=== PATIENT | male | born 1980 | race Caucasian/White ===

== ENCOUNTER 2024-05-01 15:42 | Emergency (ER) | payer OTHER, MEDICAID, SELFPAY ==
--- NOTE | ~2024-05-01 | XR_ITS ---
HISTORY: abscess/possible FB to heel COMPARISON: None TECHNIQUE: 2 views of the calcaneus were performed. FINDINGS: No acute or subacute fracture.. No radiopaque foreign body or significant calcification. Normal mineralization. IMPRESSION: As above. Reviewed, dictated and finalized at location A. 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
--- OUTSIDE RECORDS SUMMARY | 2024-05-01 15:46 | XMS_ITS | CONTINUITY OF CARE DOCUMENT ---
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
--- NOTE | 2024-05-01 17:03 | PC.NURSE ---
ice pack given for comfort
[2024-05-01 17:24] VITALS: BP 159/103; PULSE 109; RESP 18; TEMP 36.4; O2SAT 98
--- NOTE | 2024-05-01 18:07 | ED.SKABFB ---
HPI - Skin/Abscess/Foreign Bdy General Chief complaint: Skin/Abscess/Foreign Body <EZEQUIEL Rosario Last Filed: 05/01/24 18:16> Stated complaint: Left foot abcess <EZEQUIEL Rosario Last Filed: 05/01/24 18:16> Time Seen by Provider: 05/01/24 18:07 <EZEQUIEL Rosario Last Filed: 05/01/24 18:16> Focused HPI: Patient is a 43 y/o male who presents to the ED with c/o abscess to L heel. Patient reports he has had pain surrounding a callous throughout his L heel for the past 2 weeks. Denies ever stepping on anything that he is aware of. No new shoes. States he soaked his heel in hot water 2 weeks ago and was able to pull some of the callous off and pus drained out. States over the past couple days, it feels as though it has filled up with pus again. Denies new injury. Has not taken anything for pain. Denies numbness. GENERAL: Well-appearing, well-nourished, and in no acute distress. HEAD: Normocephalic, atraumatic. CHEST: Clear to auscultation. ?No respiratory distress. HEART: Regular rate and rhythm.? MSK: Pedal pulses intact. Callous formation to L heel with puncture wound/possible FB with immediate surrounding fluctuant area. Focal TTP. No active drainage. Sensation intact. NEURO: ?Alert and oriented x3. Patient screened in triage and initial orders placed.? ?Additional care and disposition to be based upon?diagnostic testing and treatment. <Chasity Weinstein PA-C - Last Filed: 05/01/24 18:16> Source: patient <EZEQUIEL Rosario Last Filed: 05/01/24 18:16> Mode of arrival: ambulatory <EZEQUIEL Rosario Last Filed: 05/01/24 18:16> EMS <Gladys Preciado MD - Last Filed: 05/02/24 17:46> Limitations: no limitations <EZEQUIEL Rosario Last Filed: 05/01/24 18:16> History of Present Illness HPI narrative: Agree with the above the following additions/corrections: Patient states he has not taken anything for pain at home. Denies any fevers or chills. States he tries to take care of his feet by washing them and wearing clean socks. No history diabetes. <Gladys Preciado MD - Last Filed: 05/02/24 17:46> Related Data Allergies/Adverse reactions: Allergies Allergy/AdvReac Type Severity Reaction Status Date / Time No Known Allergies Allergy Verified 05/01/24 15:43 <Chasity Weinstein PA-C - Last Filed: 05/01/24 18:16> PMFSH Social History Social History: Social History Smoking status: Current every day smoker Alcohol intake: current <Chasity Weinstein PA-C - Last Filed: 05/01/24 18:16> Exam Narrative: GENERAL: well-nourished, in mild acute distress. HEAD: Normocephalic, atraumatic. EYES: Non injected, non icteric ENT: Nares clear, no rhinorrhea or epistaxis. NECK: Supple. CHEST: Speaking in full sentences. No respiratory distress. HEART: Regular rate and rhythm. Strong palpable DP pulse. ABDOMEN: Soft, nondistended. EXTREMITIES: Normal range of motion. No lower extremity edema. SKIN: Warm, dry. Area at left heel that appears to be the area under an unroofed callous - mild tenderness to palpation but otherwise skin intact, not draining. Distally to this appears a lesion with central small whitish area that is very tender to palpation. Size less than 1cm x 1 cm. NEURO: No focal deficits. Alert and oriented x3. Patient speaks very quickly with Serbian as 2nd language. This makes it difficult to understand him at times necessitating that he repeat what he had been saying. PSYCH: Normal mood and affect. <Gladys Preciado MD - Last Filed: 05/02/24 17:46> Course Vital Signs Vital signs: Vital Signs Temperature 97.6 F 05/01/24 17:24 Pulse Rate 109 H 05/01/24 17:24 Respiratory Rate 18 05/01/24 17:24 Blood Pressure 159/103 H 05/01/24 17:24 Pulse Oximetry 98 05/01/24 17:24 Oxygen Delivery Room Air 05/01/24 17:24 Temperature 97.6 F 05/01/24 17:24 Pulse Rate 100 05/01/24 21:44 Respiratory Rate 18 05/01/24 21:44 Blood Pressure 149/77 H 05/01/24 21:44 Pulse Oximetry 99 05/01/24 21:44 Oxygen Delivery Room Air 05/01/24 17:24 <Chasity Weinstein PA-C - Last Filed: 05/01/24 18:16> Vital Signs Temperature 97.6 F 05/01/24 17:24 Pulse Rate 109 H 05/01/24 17:24 Respiratory Rate 18 05/01/24 17:24 Blood Pressure 159/103 H 05/01/24 17:24 Pulse Oximetry 98 05/01/24 17:24 Oxygen Delivery Room Air 05/01/24 17:24 Temperature 97.6 F 05/01/24 17:24 Pulse Rate 100 05/01/24 21:44 Respiratory Rate 18 05/01/24 21:44 Blood Pressure 149/77 H 05/01/24 21:44 Pulse Oximetry 99 05/01/24 21:44 Oxygen Delivery Room Air 05/01/24 17:24 <Gladys Preciado MD - Last Filed: 05/02/24 17:46> Procedures Abscess I/D foot: Date of Incision: 05/01/24 <Gladys Preciado MD - Last Filed: 05/02/24 17:46> Time of Incision: 21:10 <Gladys Preciado MD - Last Filed: 05/02/24 17:46> Side (if applicable): left <Gladys Preciado MD - Last Filed: 05/02/24 17:46> Sedation/analgesia: none <Gladys Preciado MD - Last Filed: 05/02/24 17:46> Local Anesthetic: lidocaine 1% <Gladys Preciado MD - Last Filed: 05/02/24 17:46> Amount of anesthesia used (mL): 0.5 <Gladys Preciado MD - Last Filed: 05/02/24 17:46> Technique: needle aspiration <Gladys Preciado MD - Last Filed: 05/02/24 17:46> Amount of fluid expressed (mL): 1 <Gladys Preciado MD - Last Filed: 05/02/24 17:46> Irrigation: No <Gladys Preciado MD - Last Filed: 05/02/24 17:46> Packing used?: none <Gladys Preciado MD - Last Filed: 05/02/24 17:46> I&D Results: Pus and Blood <Gladys Preciado MD - Last Filed: 05/02/24 17:46> MDM - Skin/Abscess/Foreign Bdy MDM Narrative Medical decision making narrative: MSE by KIERA in triage. <Chasity Weinstein PA-C - Last Filed: 05/01/24 18:16> MSE by KIERA in triage. In the emergency department he is afebrile with vital signs notable for mild tachycardia as well as hypertension initially. Mild leukocytosis and normocytic anemia with no prior for comparison. CRP and BMP normal. Given the presumption that he stepped on something given the punctate appearance and the story is unclear, will cover for pseudomonas with ciprofloxacin, even given the risk of side effects/adverse events. Patient given first dose in the ED. Heart rate has improved. Needle aspiration incision and drainage performed as above. Minimal anesthesia was able to be inserted as patient has significant pain and there was immediate pus drainage with only needle insertion from lidocaine. Wound culture collected and given to RN to send. Discharged home in stable condition with the rest of the course of antibiotic. Also provided prescriptions for [id number] analgesics medications. Advised follow-up with primary care physician and also given referral contact information for Podiatry. Provided referrals for PCPs if needed. <Gladys Preciado MD - Last Filed: 05/02/24 17:46> Differential Diagnosis Differential diagnosis: Likely abscess of skin or subcutaneous tissue and other (foreign body; plantar wart; puncture wound) <Gladys Preciado MD - Last Filed: 05/02/24 17:46> Lab Data Attestation: I reviewed the patient's lab results. <Gladys Preciado MD - Last Filed: 05/02/24 17:46> Result diagrams: 05/01/24 19:34 05/01/24 19:34 <Chasity Weinstein PA-C - Last Filed: 05/01/24 18:16> Labs: Lab Results 05/01/24 Range/Units 19:34 WBC 11.2 H (4.5-10.0) K/mm3 RBC 3.85 L (4.6-6.20) M/mm3 Hgb 12.2 L (14.0-18.0) g/dL Hct 36.8 L (42.0-52.0) % MCV 95.6 (80-100) fl MCH 31.7 (26-34) pg MCHC 33.2 (32-36) g/dl RDW 13.2 (11.5-14.5) % Plt Count 330 (150-375) k/mm3 MPV 10.1 (7.4-10.4) fl Immature Gran % (Auto) 0.4 (0-0.5) % Neut % (Auto) 66.5 (45.5-73.1) % Lymph % (Auto) 20.1 (18.3-44.2) % [place] % (Auto) 8.9 H (2.6-8.5) % Eos % (Auto) 3.6 (0-4.4) % Baso % (Auto) 0.5 (0.2-1.2) % Lymph # (Auto) 2.25 (0.9-3.2) K/mm3 [place] # (Auto) 1.0 H (0.1-0.6) K/mm3 Eos # (Auto) 0.4 H (0-0.3) K/mm3 Baso # (Auto) 0.1 (0.0-0.1) K/mm3 Abs Immat Gran (auto) 0.04 H (0.00-0.031) K/mm3 Absolute Neuts (auto) 7.5 H (1.3-6.7) K/mm3 Absolute Nucleated RBC 0.000 (0.0-0.012) K/mm3 Nucleated RBC % 0.0 (0.0-0.2) % ESR 20 (0-20) mm/hr Sodium 141 (137-145) mmol/L Potassium 4.3 (3.4-5.0) mmol/L Chloride 107 (98-107) mmol/L Carbon Dioxide 25 (22-30) mmol/L Anion Gap 9 (4-12) mmol/L BUN 19 (9-20) mg/dL Creatinine 0.77 (0.7-1.3) mg/dL Estim Creat Clear Calc 88 ml/min Estimated GFR > 60 (59 - ) Glucose 107 (65-110) mg/dL Calcium 8.7 (8.4-10.2) mg/dL C-Reactive Protein < 0.5 (<1.0) mg/dL <Chasity Weinstein PA-C - Last Filed: 05/01/24 18:16> Lab Results 05/01/24 Range/Units 19:34 WBC 11.2 H (4.5-10.0) K/mm3 RBC 3.85 L (4.6-6.20) M/mm3 Hgb 12.2 L (14.0-18.0) g/dL Hct 36.8 L (42.0-52.0) % MCV 95.6 (80-100) fl MCH 31.7 (26-34) pg MCHC 33.2 (32-36) g/dl RDW 13.2 (11.5-14.5) % Plt Count 330 (150-375) k/mm3 MPV 10.1 (7.4-10.4) fl Immature Gran % (Auto) 0.4 (0-0.5) % Neut % (Auto) 66.5 (45.5-73.1) % Lymph % (Auto) 20.1 (18.3-44.2) % [place] % (Auto) 8.9 H (2.6-8.5) % Eos % (Auto) 3.6 (0-4.4) % Baso % (Auto) 0.5 (0.2-1.2) % Lymph # (Auto) 2.25 (0.9-3.2) K/mm3 [place] # (Auto) 1.0 H (0.1-0.6) K/mm3 Eos # (Auto) 0.4 H (0-0.3) K/mm3 Baso # (Auto) 0.1 (0.0-0.1) K/mm3 Abs Immat Gran (auto) 0.04 H (0.00-0.031) K/mm3 Absolute Neuts (auto) 7.5 H (1.3-6.7) K/mm3 Absolute Nucleated RBC 0.000 (0.0-0.012) K/mm3 Nucleated RBC % 0.0 (0.0-0.2) % ESR 20 (0-20) mm/hr Sodium 141 (137-145) mmol/L Potassium 4.3 (3.4-5.0) mmol/L Chloride 107 (98-107) mmol/L Carbon Dioxide 25 (22-30) mmol/L Anion Gap 9 (4-12) mmol/L BUN 19 (9-20) mg/dL Creatinine 0.77 (0.7-1.3) mg/dL Estim Creat Clear Calc 88 ml/min Estimated GFR > 60 (59 - ) Glucose 107 (65-110) mg/dL Calcium 8.7 (8.4-10.2) mg/dL C-Reactive Protein < 0.5 (<1.0) mg/dL <Gladys Preciado MD - Last Filed: 05/02/24 17:46> Imaging Data Radiologist's impression: FINDINGS: No acute or subacute fracture.. No radiopaque foreign body or significant calcification. Normal mineralization. IMPRESSION: As above. <Gladys Preciado MD - Last Filed: 05/02/24 17:46> Discharge Plan Discharge Clinical Impression: Leukocytosis, Normocytic anemia, Abscess of heel, left, Encounter for incision and drainage procedure <Chasity Weinstein PA-C - Last Filed: 05/01/24 18:16> Patient Disposition: Home, Self-Care <Chasity Weinstein PA-C - Last Filed: 05/01/24 18:16> Condition: Stable <Chasity Weinstein PA-C - Last Filed: 05/01/24 18:16> Instructions: Antibiotic Form, Leukocytosis (ED), Abscess (ED), Anemia (ED), Incision and Drainage (ED) <Chasity Weinstein PA-C - Last Filed: 05/01/24 18:16> Additional Instructions: We were able to aspirate some pus and blood. Now that there is a way for the wound to drain, more may continue to drain. Keep the wound clean/warm/dry. Warm soapy water is fine. No need for hydrogen peroxide and do not use neosporin. If this problem recurs or if you would like a wound check, you can follow-up with your primary care physician or, the name of a executive kitchen manager/foot doctor is listed below. If you do not have a primary care physician the name of 1 is listed below. Alternatively, there is a provider that speaks Haitian if you prefer though I do not know if they are accepting patients. Her name is Vijaya Duran ([phone]). Return to the emergency department with any new or worsening symptoms such as fever greater than 100.4? F, streaking redness across the foot or into the ankle. Acetaminophen/Tylenol (maximum 4000 mg per day) is safe to take with NSAIDs (ibuprofen/Motrin) for pain relief. Take the entire course of antibiotics prescribed. You received your 1st dose in the emergency department. Can apply bandage. <Chasity Weinstein PA-C - Last Filed: 05/01/24 18:16> Patient Language: Haitian <Chasity Weinstein PA-C - Last Filed: 05/01/24 18:16> Prescriptions: New ciprofloxacin HCl 250 mg tablet 250 mg PO Q12H 5 Days Qty: 9 0RF Rx Instructions: start taking 05/02/24 (received first dose in ED 2/4 PM) ibuprofen 600 mg tablet 600 mg PO TID PRN (Reason: pain) Qty: 30 0RF acetaminophen 500 mg capsule 1,000 mg PO Q6H PRN (Reason: pain) Qty: 30 0RF <Chasity Weinstein PA-C - Last Filed: 05/01/24 18:16> Follow-up/Referrals: Mechelle Walker DPM [Physician] - (executive kitchen manager/foot doctor) PHYSICIAN,VEST MAKER [Primary Care Provider] - Chelo Scruggs DO [Physician] - (family practice) <EZEQUIEL Rosario Last Filed: 05/01/24 18:16> Stand Alone Forms: Work/School Release IP <EZEQUIEL Rosario Last Filed: 05/01/24 18:16> Time of Disposition: 21:25 <Chasity Weinstein PA-C - Last Filed: 05/01/24 18:16> 21:25 <Gladys Preciado MD - Last Filed: 05/02/24 17:46>
[2024-05-01 19:40] LABS: Basophils Absolute Auto 0.1 K/mm3 (0.0-0.1); Basophils Percent Auto 0.5 % (0.2-1.2); Eosinophils Absolute Auto 0.4 K/mm3 (0-0.3); Eosinophils Percent Auto 3.6 % (0-4.4); Hematocrit 36.8 % (42.0-52.0); Hemoglobin 12.2 g/dL (14.0-18.0); Immature Granulocyte Absolute 0.04 K/mm3 (0.00-0.031); Immature Granulocyte Percent A 0.4 % (0-0.5); Lymphocytes Absolute Auto 2.25 K/mm3 (0.9-3.2); Lymphocytes Percent Auto 20.1 % (18.3-44.2); Mean Corpuscular HGB Conc 33.2 g/dl (32-36); Mean Corpuscular Hemoglobin 31.7 pg (26-34); Mean Corpuscular Volume 95.6 fl (80-100); Mean Platelet Volume 10.1 fl (7.4-10.4); Monocytes Percent Auto 8.9 % (2.6-8.5); Neutrophils Absolute Auto 7.5 K/mm3 (1.3-6.7); Neutrophils Percent Auto 66.5 % (45.5-73.1); Platelet Count Result 330 k/mm3 (150-375); Red Blood Count 3.85 M/mm3 (4.6-6.20); Red Cell Distribution Width 13.2 % (11.5-14.5); White Blood Count 11.2 K/mm3 (4.5-10.0)
[2024-05-01] MEDS: IBUPROFEN 600 MG TABLET PO (19:43)
[2024-05-01 19:49] VITALS: BP 151/88; PULSE 99; RESP 18; O2SAT 99
[2024-05-01 19:53] LABS: Anion Gap 9 mmol/L (4-12); Blood Urea Nitrogen 19 mg/dL (9-20); CRP < 0.5 mg/dL (<1.0); Calcium 8.7 mg/dL (8.4-10.2); Carbon Dioxide 25 mmol/L (22-30); Chloride 107 mmol/L (98-107); Estimated CRCL calculation 88 ml/min; Estimated Glomerular Filt Rate > 60; Glucose 107 mg/dL (65-110); Potassium 4.3 mmol/L (3.4-5.0); Sodium 141 mmol/L (137-145)
[2024-05-01] MEDS: HYDROcodone/acetaminophen (*CRX) 5-325 MG TABLET 1 TAB PO (20:11)
[2024-05-01 20:13] LABS: Erythrocyte Sedimentation Rate 20 mm/hr (0-20)
[2024-05-01] MEDS: CIPROFLOXACIN 250 MG TABLET PO (20:41)
[2024-05-01 21:44] VITALS: BP 149/77; PULSE 100; RESP 18; O2SAT 99
== END 2024-05-01 21:45 | disposition home or self-care (01) ==
PROVIDERS: Physician Assistant; Emergency Provider Student in an Organized Health Care Education/Training Program
DX: D72.829 Elevated white blood cell count, unspecified (principal); D64.9 Anemia, unspecified; L02.612 Cutaneous abscess of left foot; F17.210 Nicotine dependence, cigarettes, uncomplicated
CPT/HCPCS: 10060; 36415; 73650; 80048; 85025; 85652; 86140; 87070; 87075; 87181; 87205; 99283; A9270